=== PATIENT | female | born 1975 | race Caucasian/White ===

== ENCOUNTER 2021-06-29 23:20 | Observation (INO) | payer BC, SELFPAY ==
--- NOTE | 2021-06-29 23:18 | ECG_ITS ---
APPROVED REPORT Exam: Resting ECG HR:86 bpm ECG Measurements Heart Rate 86 AXES WI 132 P 43 QRSd 72 QRS 20 QT 356 T 45 QTc 426 Conclusion Normal sinus rhythm Normal ECG Electronically signed by : Dominic Langford, 07/02/2021 21:08:47
[2021-06-29 23:21] VITALS: BP 167/79; PULSE 88; RESP 17; TEMP 36.7; O2SAT 98; BMI 34.9
--- NOTE | 2021-06-29 23:23 | HMH.EDGENADL ---
ED Disposition Clinical Impression: Chest pain Qualifiers: Chest pain type: unspecified Qualified Code(s): R07.9 - Chest pain, unspecified Disposition: Admitted as Observation Condition on Discharge: Good - Critical Care Critical Care Time: No Attestation: On , the high probability of a clinically significant, sudden or life threatening deterioration of the following system(s) required my full and direct attention, intervention and personal management. The time I documented below is in addition to time spent performing reported procedures but includes the following listed in this critical care notation. Medical Decision Making - Medical Records Medical records reviewed: Yes: I reviewed the patient's medical records. MR Grubbs: Reviewed prior cardiac cath results from 2019. See below. - [place] Inquiry Pt receiving controlled substance: No Vital Signs: 06/29/21 23:21 Temperature 98.1 F Temperature Source Oral Pulse Rate [Right Brachial] 88 Respiratory Rate 17 Blood Pressure [Right Arm] 167/79 H Blood Pressure Mean [Right Arm] 108 Blood Pressure Source [Right Arm] Automatic Cuff Blood Pressure Position [Right Arm] Sitting 02 Sat by Pulse Oximetry 98 Oxygen Delivery Method Room Air - Lab Data Lab Results 06/29/21 23:30: WBC 9.4, RBC 4.94, Hgb 15.1, Hct 43.7, MCV 88.5, MCH 30.6, MCHC 34.6, RDW 13.3, Plt Count 360, MPV 7.3 L, Neut % (Auto) 50.1, Lymph % (Auto) 40.0, [place] % (Auto) 6.1, Eos % (Auto) 2.2, Baso % (Auto) 1.6, Neut # (Auto) 4.7, Lymph # (Auto) 3.8, [place] # (Auto) 0.6, Eos # (Auto) 0.2, Baso # (Auto) 0.2 06/29/21 23:30: Sodium 141, Potassium 4.1, Chloride 104, Carbon Dioxide 28, Anion Gap 13.1, BUN 12, Creatinine 0.70, Estimated Creat Clear 156, Estimated GFR 91, Est GFR ( Amer) 111, Glucose 110 H, Calcium 10.1, Total Bilirubin 0.2, AST 49 H, ALT 58, Alkaline Phosphatase 84, Troponin I < 0.01, NT-Pro-B Natriuret Pep 52.3, Total Protein 8.4 H, Albumin 4.4, Globulin 4.0 H, Albumin/Globulin Ratio 1.1, TSH 2.86, Thyroxine (T4) 15.1 H 06/30/21 00:23: SARS-CoV-2 (PCR) Not detected, Influenza A Untype (PCR) Not detected, Influenza Type B (PCR) Not detected Result diagrams: 06/29/21 23:30 06/29/21 23:30 Orders (Tests/Meds): ORDERS Category Date Time Status Drug Screen,Urine Stat Lab 06/29/21 23:29 Ordered Troponin I Q3H Lab 06/30/21 02:45 Ordered Troponin I Q3H Lab 06/30/21 05:45 Ordered Urinalysis and Microscopic Stat Lab 06/29/21 23:29 Ordered CARDIAC CATHETERIZATION DATE OF CATHETERIZATION:03/24/2019 12:41 PM PROCEDURES: 1. Left heart catheterization 2. Left ventriculogram 3. Selective coronary angiogram INDICATION FOR TEST: 1. Unstable angina 2. Strong family history of coronary artery disease 44-year-old patient with extensive tobacco history and a very strong family history of coronary artery disease who was seen in an outside hospital last week with chest pain. Patient subsequently ruled out for myocardial infarction. She was followed in cardiology clinic where she was hypertensive and describing anginal symptoms. Because of a normal EKG she was placed on antianginal medications and a stress test was scheduled. I was contacted last evening by her father who is also heart patient with a history of bypass surgery and young age we described her having worsening angina. Patient was brought in this morning for urgent evaluation. Patient was describing intermittent chest pain and pressure coming and going. She described it is a very uncomfortable pressure feeling radiating down both arms which was occurring at rest. Based on her associated risk factors and accelerated and unstable symptoms, it was felt she needed urgent cardiac catheterization and was taken directly to the Manager [facility] Informed consent was obtained prior to the procedure. COMPLICATIONS: None ESTIMATED BLOOD LOSS: Less than 10 ml. TECHNIQUE: One percent lidocaine used to anesthetize the r
--- NOTE | 2021-06-29 23:29 | XR_ITS ---
PROCEDURE INFORMATION: Exam: XR Chest Exam date and time: 06/29/2021 11:29 PM Age: 45 years old Clinical indication: Chest pressure; Patient HX: Chest pain; Additional info: Cp TECHNIQUE: Imaging protocol: XR of the chest. Views: 2 views. COMPARISON: No relevant prior studies available. FINDINGS: Lungs: Unremarkable. No consolidation. Pleural spaces: Unremarkable. No pleural effusion. No pneumothorax. Heart/Mediastinum: Unremarkable. No cardiomegaly. Bones/joints: Unremarkable. IMPRESSION: No acute findings.
[2021-06-29 23:43] LABS: Basophils # 0.2 K/mm3 (0-0.2); Basophils % 1.6 % (0.1-2.0); Eosinophils # 0.2 K/mm3 (0.0-0.4); Eosinophils % 2.2 % (0.1-12.0); Hematocrit 43.7 % (37.0-47.0); Hemoglobin 15.1 g/dL (12.2-16.2); Lymphocytes # 3.8 K/mm3 (0.7-4.5); Mean Corpuscular HGB Conc 34.6 g/dL (31.8-35.4); Mean Corpuscular Hemoglobin 30.6 pg (27.0-31.2); Mean Corpuscular Volume 88.5 fl (81-99); Mean Platelet Volume 7.3 fl (7.4-10.4); Monocytes # 0.6 K/mm3 (0.1-1.0); Monocytes % 6.1 % (1.7-9.3); Neutrophils # 4.7 K/mm3 (1.8-7.8); Neutrophils % 50.1 % (37.0-80.0); Platelet Count 360 K/mm3 (142-424); Red Blood Count 4.94 M/mm3 (4.20-5.40); Red Cell Distribution Width 13.3 % (11.5-17.5); White Blood Count 9.4 K/mm3 (4.8-10.8)
[2021-06-29 23:46] LABS: Chloride 104 mmol/L (98-107); Potassium 4.1 mmoL/L (3.5-5.1); Sodium 141 mmol/L (136-145)
[2021-06-29 23:49] LABS: Alanine Aminotransferase 58 U/L (12-78); Albumin Level 4.4 g/dl (3.5-5.0); Alkaline Phosphatase 84 U/L (38-126); Anion Gap 13.1 mEq/L (5-15); Aspartate Amino Transferase 49 U/L (14-36); Bilirubin,Total 0.2 mg/dl (0.2-1.3); Blood Urea Nitrogen 12 mg/dl (7-17); Calcium 10.1 mg/dl (8.4-10.2); Carbon Dioxide 28 mmol/L (22.0-30.0); Creatinine Clearance Estimated 156 mL/min (50-200); Estimated Glomerular Filt Rate 91 ml/min (>60); GFR (African American) 111 ML/MIN (>60); Glucose 110 mg/dl (74-100); Total Protein,Serum 8.4 g/dl (6.3-8.2)
[2021-06-29 23:50] LABS: Albumin/Globulin Ratio 1.1 (1.1-1.8)
[2021-06-29 23:59] LABS: NT Pro Brain Natriuretic Pep. 52.3 pg/mL (0-125)
[2021-06-30] VITALS (21 sets, daily range): BP systolic 91–168; BP diastolic 58–93; PULSE 66–88; RESP 14–18; TEMP 36.3–37.1; O2SAT 95–100; BMI 34.9
--- NOTE | 2021-06-30 | IR_ITS ---
APPROVED REPORT Patient Location: Inpatient Sock Knitter: ALY Hall RT (R) PROCEDURES Left heart catheterization Left ventriculogram Selective coronary angiogram Bilateral selective renal angiography INDICATION Unstable angina, Strong family history of coronary disease, Suspected renovascular hypertension given severe diastolic dysfunction and severely elevated LVEDP Informed consent was obtained prior to the procedure. COMPLICATIONS NONE Estimated Blood Loss: LESS THAN 10 ML TECHNIQUE One percent lidocaine used to anesthetize the right anterior aspect of the wrist. The right radial artery was accessed via the Seldinger technique. A 6 Hebrew sheath was placed in the right radial artery. 2.5 mg of verapamil, 800 mcg of nitroglycerin, 1mg Lidocaine and 5000 U Heparin were given through the arterial sheath. The trap catheter was also used to perform left heart catheterization, left ventriculogram and selective coronary angiogram. At the end of the procedure the sheath was removed good hemostasis was achieved using Traclet band, patient was transferred to the postop holding area in stable condition. ANGIOGRAPHIC RESULTS The left main artery Normal The left anterior descending artery Has proximal 10% stenosis with a mid vessel 10 to 20% stenosis The circumflex artery Nondominant with mild mid vessel 30% stenosis The right coronary artery Large dominant with SHARON II flow throughout accompanied by diffuse 20% stenosis The MORALES ventriculogram reveals Normal 65% The left ventricular end-diastolic pressure Severely elevated at 35 mmHg Right renal artery singular normal Left renal artery singular normal IMPRESSION Mild nonflow limiting coronary disease Endothelial dysfunction as evidenced by slow flow down the dominant right coronary Normal ejection fraction Severe diastolic dysfunction likely secondary to hypertensive heart disease PLAN 1. LDL less than 55 to be achieved with high intensity statin 2. Immediate tobacco cessation 3. Patient would benefit from diuretics and better control of hypertension 4. Low-dose beta-blockers 5. Rest of risk factor modification Electronically signed by : Ervin King, 06/30/2021 15:47:30
[2021-06-30 00:06] LABS: Troponin I < 0.01 ng/ml (0.00-0.034)
[2021-06-30 00:07] LABS: T4 (Thyroxine) 15.1 ug/dl (5.53-11.0)
[2021-06-30 00:21] LABS: Thyroid Stimulating Hormone 2.86 uIU/mL (0.465-4.68)
[2021-06-30 00:39] LABS: Coronavirus 19, PCR Not Detected (NotDetected); Influenza A, PCR Not Detected (NotDetected); Influenza B, PCR Not Detected (NotDetected)
--- NOTE | 2021-06-30 01:53 | PC.NURSE ---
pt arrived to floor via wheelchair from ED
[2021-06-30 02:50] LABS: Troponin I < 0.01 ng/ml (0.00-0.034)
[2021-06-30 06:44] LABS: Troponin I < 0.01 ng/ml (0.00-0.034)
--- NOTE | 2021-06-30 07:18 | HMH.HP ---
*Admission Date: 06/30/21 *Chief complaint: chest pain *History of present illness: 45-year-old female with history of chest pain, significant family history of cardiovascular disease. She reportedly has been having episodes of chest pain off and on for the past 5 days getting 6-7 episodes a day that last up to an hour. Has previously seen cardiology (Dr. King). She contacted him due to this persistent pain and he recommended she come to the ER for assessment and admission. Of note she was recently seen at [facility] for chest pain and discharged because of negative troponins. Associated symptoms with her chest pain episodes include shortness of breath, nausea, diaphoresis, referred pain to her arm. On initial eval in our ER, troponin negative. Patient admitted for serial cardiac enzyme monitoring, cardiology consult in the morning, and anticipated left heart cath. Of note, she is a smoker, significant family history of heart disease, has hypertension and hyperlipidemia. This morning she she denies significant pain, symptoms more or less resolved. Questions answered on morning rounds [facility] History I have reviewed the patient's past medical history: Yes Medical History: Reports:: Gastroesophageal Reflux Disease(GERD), Heart Murmur, Hypertension Denies:: Cancer, Diabetes Mellitus Type 1, Diabetes Mellitus Type 2, Internal Pacemaker, MRSA, Seizures *Have you ever received a pneumonia vaccine?: No *Have you received a flu vaccine this season?: No Other Surgeries: Yes: Appendectomy, Cardiac Catheterization (not stenting), Cholecystectomy, Other. No: Pacemaker Amputation: No Fractures: No - *Social History Last grade of school completed: Advanced degree Smoking Status: Current every day smoker Tobacco Type: cigarettes # Packs/Day (cigarettes): 1 Alcohol Intake: current Alcohol Intake Frequency:: holidays/special occasions only Substance Use Type: former substance user *Occupational Status:: employed Housing: house Household Members: spouse, children *Travel in the last 8 weeks: None Family Hx:: Unable to obtain Review of Systems - Review of Systems Review of systems:: pertinent systems reviewed and negative unless documented below (14 point review of systems performed, pertinent positives and negatives as per HPI) Meds Home Medications Medication Instructions Recorded Confirmed Type omeprazole 20 mg capsule,delayed 20 mg PO DAILY 03/17/19 06/30/21 History release aspirin 81 mg tablet,delayed 81 mg PO DAILY 03/31/19 06/30/21 History release atorvastatin 40 mg tablet 40 mg PO QHS 03/31/19 06/30/21 History bisoproloL fumarate [Bisoprolol 10 mg PO DAILY 06/30/21 06/30/21 History 10mg Tablet] Allergies Allergy/AdvReac Type Severity Reaction Status Date / Time Penicillins Allergy Mild Verified 03/31/19 11:05 Exam Vital signs and Labs for Last 24 Hours: Temp Pulse Resp BP Pulse Ox 98 F 70 18 136/74 96 06/30/21 03:50 06/30/21 04:00 06/30/21 03:50 06/30/21 03:50 06/30/21 03:50 Laboratory Results - last 24 hr 06/29/21 23:30: WBC 9.4, RBC 4.94, Hgb 15.1, Hct 43.7, MCV 88.5, MCH 30.6, MCHC 34.6, RDW 13.3, Plt Count 360, MPV 7.3 L, Neut % (Auto) 50.1, Lymph % (Auto) 40.0, [place] % (Auto) 6.1, Eos % (Auto) 2.2, Baso % (Auto) 1.6, Neut # (Auto) 4.7, Lymph # (Auto) 3.8, [place] # (Auto) 0.6, Eos # (Auto) 0.2, Baso # (Auto) 0.2 06/29/21 23:30: Sodium 141, Potassium 4.1, Chloride 104, Carbon Dioxide 28, Anion Gap 13.1, BUN 12, Creatinine 0.70, Estimated Creat Clear 156, Estimated GFR 91, Est GFR ( Amer) 111, Glucose 110 H, Calcium 10.1, Total Bilirubin 0.2, AST 49 H, ALT 58, Alkaline Phosphatase 84, Troponin I < 0.01, NT-Pro-B Natriuret Pep 52.3, Total Protein 8.4 H, Albumin 4.4, Globulin 4.0 H, Albumin/Globulin Ratio 1.1, TSH 2.86, Thyroxine (T4) 15.1 H 06/30/21 00:23: SARS-CoV-2 (PCR) Not detected, Influenza A Untype (PCR) Not detected, Influenza Type B (PCR) Not detected 06/30/21 0
--- NOTE | 2021-06-30 07:41 | HMH.CNCARD ---
History of Present Illness Consult date: 06/30/21 Requesting physician: Mauro Baker Consult reason: chest pain Chief complaint: Chest pain and Hypertension History of present illness: 45-year-old female presented to [facility] with atypical chest pain. Patient states her chest pain started over the weekend, in which she felt episodes of heaviness on her chest. Patient states these episodes would come and go only lasting for a few seconds. Patient states she would take her blood pressure and noticed that it was very high. Patient states she had stopped taking her antihypertensive medication over a year ago. Patient states on [facility]. Patient states all her lab work was fine and sent her home. She states she followed up with PCP the next day, and was prescribed lisinopril due to her elevated blood pressure. Patient states she came in the ED last evening, with the heaviness on her chest. Patient states she did become short of breath with this episode. Patient denied nausea or vomiting. Patient denies fevers. Patient denies chest pain, tightness or pressure at this time. Denies shortness of breath. Denies palpitations or dizziness. Patient states she did speak with Dr. King prior to coming to the emergency room. Dr. King recommended patient to be evaluated in the ED with possible admission with possible catheterization this a.m. Patient has history of coronary artery disease. Last heart catheterization was in 2019 which revealed mild nonflow limiting CAD, hyperdynamic ventricle consistent with hypertensive heart disease and diastolic dysfunction. Elevated LVEDP consistent with diastolic dysfunction and hypertensive heart disease. Patient does have significant family history of coronary artery disease. Father is known to have NE requiring CABG. Mother has history of CAD. Patient has history of hypertension, in which she is noncompliant with her medications. History of hyperlipidemia, patient is noncompliant with her medication. Initial work-up was performed in the ED. Labs are unremarkable. Serial troponins are negative. Initial EKG revealed sinus rhythm with a heart rate of 76 bpm. [facility] ANGIOGRAPHIC RESULTS:(2019) 1. The left main artery normal 2. The left anterior descending artery is proximally normal and has mild mid vessel 10-20% stenoses. 3. The circumflex artery is a nondominant vessel and has a proximal 10-20 and a mid vessel concentric 30% stenosis 4. The right coronary artery is a large dominant vessel which has proximal and mid vessel 10-20% stenoses and distal tendon 20% atheromatous plaque. The posterior descending artery has 20 and 30% mid vessel stenoses 5. The MORALES ventriculogram reveals slightly hyperdynamic at 75% 6. The left ventricular end-diastolic pressure 20 mmHg IMPRESSION: 1. Mild nonflow limiting coronary artery disease 2. Hyperdynamic ventricle consistent with hypertensive heart disease and diastolic dysfunction 3. Elevated LVEDP consistent with diastolic dysfunction and hypertensive heart disease PLAN: 1. Absolute tobacco avoidance 2. Daily aspirin 81 mg 3. LDL less than 55 4. Increased beta blockers and antianginal medications with better control of hypertension 5. Aggressive risk factor modification 6. Stress relief Discussed plan of care with Dr. King. Patient will be scheduled for a left heart catheterization this a.m., due to atypical chest pain and uncontrolled hypertension. Discussed risk and benefits of left heart catheterization with right radial access with patient. Patient verbalized understanding and is agreeable to procedure. Obtain echocardiogram to assess LV function and valve status. Patient was started on bisoprolol 10 mg daily for hypertension. Will start atorvastatin 40 mg at bedtime for hyperlipidemia. Will obtain lipid and liver panel. Pending on the results of the
--- NOTE | 2021-06-30 07:45 | CA_ITS ---
APPROVED REPORT EXAM: Comprehensive 2D, Doppler, and color-flow Echocardiogram Teacher Advisor: Sharon Roach RDCS Ht: 5 ft 4 in Wt: 210lbs BSA: 2.00 BP: 142/85 mmHg Indications: CP,CAD,SMOKER,HTN 2D Dimensions LVDd 1.93 cm F: 3.9 - 5.3 M-Mode Dimensions RVDd 2.29 cm (0.9-2.6) LA Diam 3.30 cm (1.9-4.0) LVDd 5.04 cm (3.5-5.7) Ao Diam 3.05 cm (2.0-3.7) LVDs 3.58 cm (3.5-5.7) IVSd 0.93 cm (0.6-1.1) PWd 0.79 cm (0.6-1.1) EF (Teich) 55.40% FS 29.00% EDV (Teich) 120.50 mL ESV (Teich) 53.70 mL LV Diastology E Decel Time 197.00 (160-240 msec) E/A Ratio 1.1 MED E' 7.60 (< 7 cm/sec) E'/MED E' Ratio 10.79 (>14) LAT E' 9.40 (<10 cm/sec) E/LAT E' Ratio 8.72 (>14) Mitral Valve MV E Max Naldo. 82.00 (40-130 cm/s) MV A Velocity 78.00 (40-130 cm/s) E/A Ratio 1.06 MV Decel. Time 197.00 (160-240 ms) MV PHT 58.00 ms Left Ventricle Left atrium is normal size, left ventricle is normal size, there is no concentric left ventricular hypertrophy, visually estimated ejection fraction 55% with no regional wall motion abnormality, diastolic parameters are within normal range. Right Ventricle Right atrium and right ventricle are normal size and contractility. Aortic Valve Aortic valve is grossly normal, there is no aortic stenosis or aortic insufficiency. Mitral Valve Mitral valve grossly normal, there is trace mitral regurgitation. Tricuspid Valve Tricuspid valve grossly normal, there is trace tricuspid regurgitation, tricuspid regurgitation jet velocity is inadequate for calculation of the right ventricular systolic pressure. Pulmonic Valve Pulmonic valve is poorly visualized. Great Vessels Aortic root is normal size. Pericardium No significant pericardial effusion noted. Conclusion 1. Normal left ventricular size, preserved left ventricular systolic function visually estimated ejection fraction 55% with no regional wall motion abnormalities diastolic parameters are within normal range. 2. Trace mitral and tricuspid regurgitation. 3. No significant pericardial effusion noted. Electronically signed by : Lucien Stoll, 06/30/2021 11:42:13
[2021-06-30 08:10] LABS: Chol/HDL Ratio 5.3 (1-3.5); Cholesterol 240 mg/dl (140-200); HDL Cholesterol 45 mg/dl (40-60); Triglycerides 100 mg/dl (30-150); VLDL Cholesterol 20 mg/dL (0-40)
[2021-06-30 08:21] LABS: Direct LDL Cholesterol 181.87 mg/dL (100-129)
--- NOTE | 2021-06-30 18:10 | P.CONPHA_ITS ---
[facility] Pharmacy VTE Monitoring - Patient Demographics Admission date: 06/30/21 Report Date: 06/30/21 Time: 18:10 Allergies/Adverse Reactions: Patient Allergies Penicillins Allergy (Mild, Verified 03/31/19 11:05) Height: 1.65 m Weight: 95.254 kg Patient Problems: Current Active Problems Atypical chest pain (Acute) HLD (hyperlipidemia) (Chronic) Class 1 obesity (Chronic) Family history of coronary artery disease (Chronic) Smoker (Chronic) SOB (shortness of breath) (Acute) Chest pain (Acute) HTN (hypertension) (Chronic) - VTE Risk Labs: VTE Related Lab Results Hgb 15.1 g/dL (12.2-16.2) 06/29/21 23:30 Hct 43.7 % (37.0-47.0) 06/29/21 23:30 Plt Count 360 K/mm3 (142-424) 06/29/21 23:30 BUN 12 mg/dl (7-17) 06/29/21 23:30 Creatinine 0.70 mg/dl (0.52-1.04) 06/29/21 23:30 Estimated Creat Clear 156 mL/min (50-200) 06/29/21 23:30 VTE Risk Level: Low Risk - Prophylaxis Types of VTE Prophylaxis: TEDS Knee High
--- NOTE | 2021-06-30 19:38 | PC.NURSE ---
aox4, cath site to r groin c/d/i, no bleeding or hematoma noted. vss.
[2021-07-01] VITALS: BP 120/78; PULSE 69; PULSE 72; RESP 18; TEMP 36.4; O2SAT 95
[2021-07-01 00:07] LABS: Microscopic, Urine URINE MICROSCOPIC (MICROSCOPIC)
[2021-07-01 00:13] LABS: Appearance,Urine CLEAR (Clear); Bilirubin,Urine Negative (Negative); Blood, Urine TRACE-L (Negative); Color,Urine YELLOW (Yellow); Glucose,Urine (UA) Negative (Negative); Ketones,Urine Negative (Negative); Leukocyte Esterase,Urine TRACE (Negative); Nitrate,Urine Negative (Negative); Protein,Urine Negative (Negative); Specific Gravity, Urine 1.025 (1.005-1.030); Urobilinogen,Urine 0.2 EU/dl (0.2)
[2021-07-01 00:22] LABS: Amorphous Sediment,Urine Trace /lpf
[2021-07-01 00:23] LABS: Amphetamine/Metha Screen,Urine Negative ng/ml (<1000); Barbiturates Screen,Urine Negative ng/ml (<200)
[2021-07-01 00:24] LABS: Benzodiazepines Screen,Urine Positive ng/ml (<200)
[2021-07-01 00:25] LABS: Cannabinoid Screen,Urine Negative ng/ml (<50); Cocaine Screen,Urine Negative ng/ml (<300)
[2021-07-01 00:26] LABS: Methadone Screen,Urine Negative ng/ml (<300)
[2021-07-01 00:27] LABS: Opiate Screen,Urine Negative ng/ml (<300); Phencyclidine Screen,Urine Negative ng/ml (<25)
[2021-07-01 03:39] VITALS: BP 97/61; PULSE 71; RESP 18; TEMP 36.6; O2SAT 95
[2021-07-01 04:00] VITALS: PULSE 71
[2021-07-01 05:04] VITALS: BMI 35.3
[2021-07-01 06:02] LABS: Basophils # 0.1 K/mm3 (0-0.2); Eosinophils # 0.1 K/mm3 (0.0-0.4); Eosinophils % 1.4 % (0.1-12.0); Hematocrit 37.5 % (37.0-47.0); Hemoglobin 13.1 g/dL (12.2-16.2); Lymphocytes # 2.5 K/mm3 (0.7-4.5); Lymphocytes % 30.3 % (10-50); Mean Corpuscular HGB Conc 34.9 g/dL (31.8-35.4); Mean Corpuscular Hemoglobin 31.2 pg (27.0-31.2); Mean Corpuscular Volume 89.4 fl (81-99); Mean Platelet Volume 7.4 fl (7.4-10.4); Monocytes # 0.5 K/mm3 (0.1-1.0); Monocytes % 5.5 % (1.7-9.3); Neutrophils % 61.7 % (37.0-80.0); Platelet Count 298 K/mm3 (142-424); Red Cell Distribution Width 13.5 % (11.5-17.5); White Blood Count 8.2 K/mm3 (4.8-10.8)
[2021-07-01 06:23] LABS: Anion Gap 9.3 mEq/L (5-15); Blood Urea Nitrogen 15 mg/dl (7-17); Carbon Dioxide 28 mmol/L (22.0-30.0); Chloride 102 mmol/L (98-107); Creatinine Clearance Estimated 138 mL/min (50-200); Estimated Glomerular Filt Rate 78 ml/min (>60); GFR (African American) 95 ML/MIN (>60); Glucose 96 mg/dl (74-100); Potassium 4.3 mmoL/L (3.5-5.1); Sodium 135 mmol/L (136-145)
[2021-07-01 06:35] LABS: Calcium 8.6 mg/dl (8.4-10.2)
[2021-07-01 08:00] VITALS: BP 111/67; PULSE 78; RESP 18; TEMP 36.9; O2SAT 97
--- NOTE | 2021-07-01 08:10 | HMH.DCSUM ---
General - General Admission date:: 06/30/21 Discharge date: 07/01/21 HPI HPI: 45-year-old female with history of chest pain, significant family history of cardiovascular disease. She reportedly has been having episodes of chest pain off and on for the past 5 days getting 6-7 episodes a day that last up to an hour. Has previously seen cardiology (Dr. King). She contacted him due to this persistent pain and he recommended she come to the ER for assessment and admission. Of note she was recently seen at [facility] for chest pain and discharged because of negative troponins. Associated symptoms with her chest pain episodes include shortness of breath, nausea, diaphoresis, referred pain to her arm. On initial eval in our ER, troponin negative. Patient admitted for serial cardiac enzyme monitoring, cardiology consult in the morning, and anticipated left heart cath. Of note, she is a smoker, significant family history of heart disease, has hypertension and hyperlipidemia. This morning she she denies significant pain, symptoms more or less resolved. Questions answered on morning rounds Hospital Course Hospital Course: Patient was admitted, sent to cardiac cath suite for left heart cath, results as noted below: ANGIOGRAPHIC RESULTS The left main artery Normal The left anterior descending artery Has proximal 10% stenosis with a mid vessel 10 to 20% stenosis The circumflex artery Nondominant with mild mid vessel 30% stenosis The right coronary artery Large dominant with SHARON II flow throughout accompanied by diffuse 20% stenosis The MORALES ventriculogram reveals Normal 65% The left ventricular end-diastolic pressure Severely elevated at 35 mmHg Right renal artery singular normal Left renal artery singular normal IMPRESSION Mild nonflow limiting coronary disease Endothelial dysfunction as evidenced by slow flow down the dominant right coronary Normal ejection fraction Severe diastolic dysfunction likely secondary to hypertensive heart disease PLAN 1. LDL less than 55 to be achieved with high intensity statin 2. Immediate tobacco cessation 3. Patient would benefit from diuretics and better control of hypertension 4. Low-dose beta-blockers 5. Rest of risk factor modification Patient was monitored overnight, did well, blood pressure remained below previous admission levels, this morning is 111/80 after she has been awakened. She has no chest pain. Plan will be to discharge home on low-dose beta-trini, high intensity statin, aspirin and diuretic. She will be followed up by her normal provider, nurse practitioner Ms. Javier in [place] on Saturday-already has an appointment. And with cardiology here at [facility]. Discussed smoking cessation for quite a lengthy amount of time this morning. Objective Vital signs: Temp Pulse Resp BP Pulse Ox 97.9 F 71 18 97/61 L 95 07/01/21 03:39 07/01/21 04:00 07/01/21 03:39 07/01/21 03:39 07/01/21 03:39 no acute distress - *Routine HEENT Exam Head: Present: normocephalic Eye: Present: EOMI, PERRL ENT: Present: mucous membranes moist - *Routine Neck Exam Present: supple - *Routine Respiratory Exam Present: CTA bilaterally - *Routine Cardiovascular Exam Present: RRR - *Routine Abdominal Exam Present: soft, normoactive bowel sounds. Absent: tenderness - *Routine Extremities Exam Absent: cyanosis, clubbing, edema - *Routine Skin Exam Present: warm. Absent: rash - Detailed Eye Exam Eyelids: Bilateral normal inspection Results Labs on day of discharge: Labs from last 24 hours 07/01/21 07/01/21 07/01/21 05:20 05:20 00:00 WBC 8.2 RBC 4.20 Hgb 13.1 Hct 37.5 MCV 89.4 MCH 31.2 MCHC 34.9 RDW 13.5 Plt Count 298 MPV 7.4 Neut % (Auto) 61.7 Lymph % (Auto) 30.3 [place] % (Auto) 5.5 Eos % (Auto) 1.4 Baso % (Auto) 1.0 Neut # (Auto) 5.0 Lymph #
--- NOTE | 2021-07-01 10:35 | PC.NURSE ---
PT STATED THAT SHE WANTED TO TAKE HER MORNING MEDICATIONS AT HOME
== END 2021-07-01 09:55 | disposition home or self-care (01) ==
LOC: ER 06-30 00:19 → 2ND 06-30 01:58
PROVIDERS: Internal Medicine; Urology; Admitting Provider Internal Medicine Adolescent Medicine; Emergency Provider Emergency Medicine; PCP Nurse Practitioner Family; Visit Provider Internal Medicine Adolescent Medicine
DX: I25.110 Atherosclerotic heart disease of native coronary artery with unstable angina pectoris (principal); Z82.49 Family history of ischemic heart disease and other diseases of the circulatory system; F17.210 Nicotine dependence, cigarettes, uncomplicated; Z20.822 Contact with and (suspected) exposure to COVID-19; I15.0 Renovascular hypertension; R06.9 Unspecified abnormalities of breathing; I11.9 Hypertensive heart disease without heart failure
CPT/HCPCS: 36252; 36415; 71046; 80048; 80053; 80061; 80305; 81001; 83880; 84436; 84443; 84484; 85025; 87086; 87088; 87186; 93005; 93306; 93458; 99152; 99284; C1725; C1769; G0378; J1644; Q9967; U0003

== ENCOUNTER → 2023-09-03 14:37 | Outpatient (CLI) | payer BC, SELFPAY ==
[2023-09-03 15:51] LABS: Basophils # 0.1 K/mm3 (0-0.2); Basophils % 1.2 % (0.1-2.0); Eosinophils # 0.1 K/mm3 (0.0-0.4); Eosinophils % 1.6 % (0.1-12.0); Hemoglobin 14.5 g/dL (12.2-16.2); Lymphocytes # 2.9 K/mm3 (0.7-4.5); Lymphocytes % 36.6 % (10-50); Mean Corpuscular HGB Conc 32.2 g/dL (31.8-35.4); Mean Corpuscular Hemoglobin 29.1 pg (27.0-31.2); Mean Corpuscular Volume 90.2 fl (81-99); Mean Platelet Volume 7.8 fl (7.4-10.4); Monocytes # 0.4 K/mm3 (0.1-1.0); Monocytes % 4.9 % (1.7-9.3); Neutrophils # 4.4 K/mm3 (1.8-7.8); Neutrophils % 55.6 % (37.0-80.0); Platelet Count 336 K/mm3 (142-424); Red Blood Count 4.99 M/mm3 (4.20-5.40); Red Cell Distribution Width 13.3 % (11.5-17.5); White Blood Count 7.8 K/mm3 (4.8-10.8)
[2023-09-03 15:59] LABS: Hemoglobin A1C 5.8 % (4.0-6.0)
[2023-09-03 16:24] LABS: Alanine Aminotransferase 62 U/L (12-78); Albumin Level 4.1 g/dl (3.5-5.0); Alkaline Phosphatase 91 U/L (38-126); Anion Gap 14.4 mEq/L (5-15); Aspartate Amino Transferase 60 U/L (14-36); Bilirubin,Direct 0.2 mg/dl (0.0-0.4); Bilirubin,Indirect 0.2 mg/dL (0.0-0.9); Bilirubin,Total 0.4 mg/dl (0.2-1.3); Bilirubin,Unconjugated 0.2 mg/dL (0.0-1.1); Blood Urea Nitrogen 13 mg/dl (7-17); Calcium 9.2 mg/dl (8.4-10.2); Carbon Dioxide 26 mmol/L (22.0-30.0); Chloride 104 mmol/L (98-107); Chol/HDL Ratio 5.8 (1-3.5); Cholesterol 232 mg/dl (140-200); Estimated Glomerular Filt Rate 77 ml/min (>60); GFR (African American) 93 ML/MIN (>60); Glucose 91 mg/dl (74-100); HDL Cholesterol 40 mg/dl (40-60); Magnesium 1.9 mg/dl (1.6-2.3); Potassium 4.4 mmoL/L (3.5-5.1); Sodium 140 mmol/L (136-145); Total Protein,Serum 7.4 g/dl (6.3-8.2); Triglycerides 173 mg/dl (30-150); VLDL Cholesterol 35 mg/dL (0-40)
[2023-09-03 16:36] LABS: Direct LDL Cholesterol 152.17 mg/dL (100-129)
[2023-09-03 16:41] LABS: Free T4 (Free Thyroxine) 1.26 ng/dl (0.78-2.19)
[2023-09-03 16:55] LABS: Thyroid Stimulating Hormone 2.71 uIU/mL (0.465-4.68)
== END ==
PROVIDERS: PCP Nurse Practitioner Family; Visit Provider Physician Assistant
DX: E78.5 Hyperlipidemia, unspecified (principal); R06.02 Shortness of breath; F17.200 Nicotine dependence, unspecified, uncomplicated; I11.9 Hypertensive heart disease without heart failure
CPT/HCPCS: 36415; 80048; 80061; 80076; 83036; 83735; 84439; 84443; 85025

== ENCOUNTER → 2023-11-29 08:56 | Outpatient (CLI) | payer BC, SELFPAY ==
[2023-11-29 09:24] LABS: Basophils # 0.1 K/mm3 (0-0.2); Basophils % 1.1 % (0.1-2.0); Eosinophils # 0.2 K/mm3 (0.0-0.4); Eosinophils % 2.4 % (0.1-12.0); Hematocrit 38.1 % (37.0-47.0); Hemoglobin 13.2 g/dL (12.2-16.2); Lymphocytes # 2.3 K/mm3 (0.7-4.5); Lymphocytes % 36.8 % (10-50); Mean Corpuscular HGB Conc 34.6 g/dL (31.8-35.4); Mean Corpuscular Hemoglobin 30.6 pg (27.0-31.2); Mean Corpuscular Volume 88.6 fl (81-99); Mean Platelet Volume 7.2 fl (7.4-10.4); Monocytes # 0.4 K/mm3 (0.1-1.0); Monocytes % 6.5 % (1.7-9.3); Neutrophils # 3.4 K/mm3 (1.8-7.8); Neutrophils % 53.2 % (37.0-80.0); Platelet Count 333 K/mm3 (142-424); Red Cell Distribution Width 13.7 % (11.5-17.5); White Blood Count 6.3 K/mm3 (4.8-10.8)
[2023-11-29 09:48] LABS: Chloride 105 mmol/L (98-107); Potassium 4.4 mmoL/L (3.5-5.1); Sodium 139 mmol/L (136-145)
[2023-11-29 09:50] LABS: Alanine Aminotransferase 60 U/L (12-78); Aspartate Amino Transferase 48 U/L (14-36); Bilirubin,Unconjugated 0.3 mg/dL (0.0-1.1); Blood Urea Nitrogen 15 mg/dl (7-17); Estimated Glomerular Filt Rate 77 ml/min (>60); GFR (African American) 93 ML/MIN (>60)
[2023-11-29 09:51] LABS: Albumin Level 3.7 g/dl (3.5-5.0); Alkaline Phosphatase 89 U/L (38-126); Anion Gap 10.4 mEq/L (5-15); Bilirubin,Direct 0.2 mg/dl (0.0-0.4); Bilirubin,Indirect 0.3 mg/dL (0.0-0.9); Bilirubin,Total 0.5 mg/dl (0.2-1.3); Carbon Dioxide 28 mmol/L (22.0-30.0); Chol/HDL Ratio 4.1 (1-3.5); Cholesterol 186 mg/dl (140-200); Glucose 117 mg/dl (74-100); HDL Cholesterol 45 mg/dl (40-60); Total Protein,Serum 6.6 g/dl (6.3-8.2); Triglycerides 81 mg/dl (30-150); VLDL Cholesterol 16 mg/dL (0-40)
[2023-11-29 10:02] LABS: Direct LDL Cholesterol 119.36 mg/dL (100-129)
[2023-11-29 10:11] LABS: Free T4 (Free Thyroxine) 1.16 ng/dl (0.78-2.19)
[2023-11-29 10:25] LABS: Thyroid Stimulating Hormone 1.94 uIU/mL (0.465-4.68)
== END ==
LOC: LAB 08:57
PROVIDERS: PCP Nurse Practitioner Family; Visit Provider Physician Assistant
DX: R06.00 Dyspnea, unspecified (principal); I11.9 Hypertensive heart disease without heart failure; E78.5 Hyperlipidemia, unspecified; I63.9 Cerebral infarction, unspecified; E11.9 Type 2 diabetes mellitus without complications; F17.200 Nicotine dependence, unspecified, uncomplicated
CPT/HCPCS: 36415; 80048; 80061; 80076; 84439; 84443; 85025

== ENCOUNTER 2024-08-11 14:51 | Outpatient (CLI) | payer BC, SELFPAY ==
--- NOTE | 2024-08-11 14:54 | XR_ITS ---
FINAL REPORT CLINICAL HISTORY: orthopnea, htn, chest pain previous smoker COMPARISON: None FINDINGS: Two views of the chest were obtained. The heart size and pulmonary vascularity are within normal limits. The mediastinum is normal. No acute pulmonary abnormality is identified. There is no pneumothorax. The bony thorax is intact. IMPRESSION: No active cardiopulmonary disease. Reviewed, Interpreted and Dictated by Milind Wick III, MD Transcribed by Kaye Parham Authenticated and [facility]
[2024-08-11 15:27] LABS: Basophils # 0.1 K/mm3 (0-0.2); Basophils % 2.2 % (0.1-2.0); Eosinophils # 0.1 K/mm3 (0.0-0.4); Eosinophils % 1.6 % (0.1-12.0); Hematocrit 38.6 % (37.0-47.0); Hemoglobin 12.6 g/dL (12.2-16.2); Lymphocytes # 2.4 K/mm3 (0.7-4.5); Lymphocytes % 41.9 % (10-50); Mean Corpuscular HGB Conc 32.7 g/dL (31.8-35.4); Mean Corpuscular Hemoglobin 29.7 pg (27.0-31.2); Mean Corpuscular Volume 90.8 fl (81-99); Mean Platelet Volume 7.5 fl (7.4-10.4); Monocytes # 0.4 K/mm3 (0.1-1.0); Monocytes % 6.7 % (1.7-9.3); Neutrophils # 2.7 K/mm3 (1.8-7.8); Neutrophils % 47.7 % (37.0-80.0); Platelet Count 324 K/mm3 (142-424); Red Blood Count 4.25 M/mm3 (4.20-5.40); White Blood Count 5.7 K/mm3 (4.8-10.8)
[2024-08-11 16:19] LABS: Anion Gap 7.9 mEq/L (5-15); Blood Urea Nitrogen 12 mg/dl (7-17); Calcium 9.1 mg/dl (8.4-10.2); Carbon Dioxide 29 mmol/L (22.0-30.0); Chloride 105 mmol/L (98-107); Estimated Glomerular Filt Rate 77 ml/min (>60); GFR (African American) 93 ML/MIN (>60); Glucose 103 mg/dl (74-100); Potassium 4.9 mmoL/L (3.5-5.1); Sodium 137 mmol/L (136-145)
[2024-08-11 16:29] LABS: NT Pro Brain Natriuretic Pep. 144 pg/mL (0-125)
[2024-08-11 18:13] LABS: Hemoglobin A1C 6.1 % (4.0-6.0)
== END 2024-08-11 23:59 | disposition home or self-care (01) ==
LOC: LAB 14:52
PROVIDERS: PCP Nurse Practitioner Family; Visit Provider Physician Assistant
DX: R06.02 Shortness of breath (principal); I10 Essential (primary) hypertension; R07.9 Chest pain, unspecified; R06.01 Orthopnea
CPT/HCPCS: 36415; 71046; 80048; 83036; 83880; 84443; 85025

== ENCOUNTER 2025-01-14 09:59 | Outpatient (CLI) | payer BC, SELFPAY ==
--- NOTE | 2025-01-14 10:05 | CA_ITS ---
APPROVED REPORT EXAM: Comprehensive 2D, Doppler, and color-flow Echocardiogram Six Sigma Project Manager: Deana Arango RT(R) Ht: 5 ft 0 in Wt: 225lbs BSA: 1.96 BP: 138/92 mmHg Indications: CP, HTN, hyperlipidemia, SOB, ex smoker, fatigue. 2D Dimensions LVEF (Block's) 62.40 % F: 54 - 74 LV Volume 82.70 mL F: 46 - 106 LV Volume Index 42.2 mL/m2 F: 29 - 61 LA Volume 25.40 mL LA Volume Index 12.96 mL/m2 (M/F) 16-34 EF AP4 64.00 % EF AP2 60.6 % EF BP 62.4 % GL Strain -18.8 % M-Mode Dimensions RVDd 2.21 cm (0.9-2.6) LA Diam 3.67 cm (1.9-4.0) LVDd 4.42 cm (3.5-5.7) LVDs 3.30 cm (3.5-5.7) IVSd 0.60 cm (0.6-1.1) PWd 0.64 cm (0.6-1.1) EF (Teich) 50.20% FS 25.30% EDV (Teich) 88.60 mL ESV (Teich) 44.10 mL LV Diastology E Decel Time 183 (160-240 msec) E/A Ratio 1.0 Mitral Valve MV E Max Naldo. 88.0 (40-130 cm/s) MV A Velocity 90.0 (40-130 cm/s) E/A Ratio 0.98 MV PHT 54.0 ms Left Ventricle The left ventricle is normal size. The left ventricular systolic function is normal. The left ventricular ejection fraction is within the normal range. There is normal left ventricular wall thickness. There is normal LV segmental wall motion. The left ventricular diastolic function is normal. LVEF is 55%. Right Ventricle The right ventricle is normal size. The right ventricular systolic function is normal. Atria The left atrium size is normal. The right atrium size is normal. There is no Doppler evidence of interatrial shunt. Aortic Valve The aortic valve opens well. There is no aortic valvular stenosis. No aortic regurgitation is present. Mitral Valve The mitral valve is normal in structure. No evidence of mitral valve stenosis. There is no mitral valve regurgitation noted. Tricuspid Valve Tricuspid valve is grossly normal in structure and function. Trace tricuspid regurgitation. There is insufficient TR jet to estimate RVSP. Pulmonic Valve The pulmonary valve is normal in structure. Trace pulmonic regurgitation. Great Vessels The aortic root is normal in size. IVC is normal in size and collapses >50% with inspiration. Pericardium There is no pericardial effusion. Other Information Study Quality: Fair Conclusion Normal biventricular systolic function. No significant valvular stenosis or regurgitation. Electronically signed by : Yelitza Lamar MD 01/19/2025 23:00:07
--- NOTE | 2025-01-14 10:41 | CA_ITS ---
APPROVED REPORT Exam: Exercise Treadmill Technologist: Sania Sanford Ht: 5 ft 0 in Wt: 200 lbs BSA: 1.87 m2 HR: 71 bpm BP: 117/71 mmHg Rhythm: NSR Medical History Medical History: HTN, Hyperlipidemia, Diabetes Medications: Aspirin, Atorvastatin, Ezetimibe, Hydrakazine, Hydrochlorothiazide, Lisinopril, Metoprolol Succinate ER, Omeprazole, Tirzepatide Allergies: Penicillin Cardiac Risk Factors: HTN, Hyperlipidemia, Diabetes, FHX of CAD Stress Test Details Test: Exercise stress testing was performed using a Clement protocol. HR Resting HR: 71 bpm Max Heart Rate (APMHR): 173 bpm Max HR Achieved: 153 bpm Target HR (85% APMHR): 147 bpm % of APMHR: 88 Recovery HR: 107 bpm HR response to stress: Normal HR response to stress BP Resting BP: 117.0/71.0 mmHg Max BP: 161.0/96.0 mmHg Recovery BP: 125.0/83.0 mmHg BP response to stress: Normal blood pressure response to stress. ECG Resting ECG: NSR Stress EC.[address] depression Arrhythmia: None Clinical Exercise duration: 6:59 min Highest Stage Achieved: Stage 2: 2.5 mph at 12% grade. Exercise capacity: 7.2 METs Overall Exercise Capacity for Age: Fair Stress ECG Conclusion Pt had mild dyspnea. Stopped at 7:[address] changes: 0.[address] depression. CONCLUSION Fair exercise capacity. No evidence of ischemia at peak stress on ECG. Electronically signed by : Yelitza Lamar MD 01/18/2025 00:20:02
[2025-01-14 11:42] LABS: Basophils # 0.1 K/mm3 (0-0.2); Basophils % 1.4 % (0.1-2.0); Eosinophils # 0.1 K/mm3 (0.0-0.4); Eosinophils % 1.8 % (0.1-12.0); Hemoglobin 14.1 g/dL (12.2-16.2); Lymphocytes % 42.7 % (10-50); Mean Corpuscular HGB Conc 33.6 g/dL (31.8-35.4); Mean Corpuscular Hemoglobin 29.9 pg (27.0-31.2); Mean Corpuscular Volume 89.2 fl (81-99); Mean Platelet Volume 9.2 fl (7.4-10.4); Monocytes # 0.5 K/mm3 (0.1-1.0); Monocytes % 6.5 % (1.7-9.3); Neutrophils # 3.3 K/mm3 (1.8-7.8); Neutrophils % 47.5 % (37.0-80.0); Platelet Count 323 K/mm3 (142-424); Red Blood Count 4.71 M/mm3 (4.20-5.40); Red Cell Distribution Width 12.7 % (11.5-17.5); White Blood Count 7.1 K/mm3 (4.8-10.8)
[2025-01-14 12:29] LABS: Alanine Aminotransferase 50 U/L (12-78); Albumin Level 5.1 g/dl (3.5-5.0); Alkaline Phosphatase 94 U/L (38-126); Anion Gap 26.6 mEq/L (5-15); Aspartate Amino Transferase 53 U/L (14-36); Bilirubin,Direct 0.4 mg/dl (0.0-0.4); Bilirubin,Indirect 0.5 mg/dL (0.0-0.9); Bilirubin,Total 0.9 mg/dl (0.2-1.3); Bilirubin,Unconjugated 0.6 mg/dL (0.0-1.1); Blood Urea Nitrogen 15 mg/dl (7-17); Calcium 10.2 mg/dl (8.4-10.2); Carbon Dioxide 21 mmol/L (22.0-30.0); Chloride 100 mmol/L (98-107); Chol/HDL Ratio 3.3 (1-3.5); Cholesterol 131 mg/dl (140-200); Estimated Glomerular Filt Rate 59 ml/min (>60); GFR (African American) 72 ML/MIN (>60); Glucose 97 mg/dl (74-100); HDL Cholesterol 40 mg/dl (40-60); Potassium 5.6 mmoL/L (3.5-5.1); Sodium 142 mmol/L (136-145); Triglycerides 129 mg/dl (30-150); VLDL Cholesterol 26 mg/dL (0-40)
[2025-01-14 12:40] LABS: Direct LDL Cholesterol 61.78 mg/dL (100-129)
[2025-01-14 12:59] LABS: Thyroid Stimulating Hormone 1.69 uIU/mL (0.465-4.68)
== END 2025-01-14 23:59 | disposition home or self-care (01) ==
PROVIDERS: PCP Nurse Practitioner Family; Visit Provider Physician Assistant
DX: I51.89 Other ill-defined heart diseases (principal); R07.9 Chest pain, unspecified; R06.02 Shortness of breath; E78.2 Mixed hyperlipidemia; G47.00 Insomnia, unspecified; E66.9 Obesity, unspecified; Z68.39 Body mass index [BMI] 39.0-39.9, adult; F17.210 Nicotine dependence, cigarettes, uncomplicated
CPT/HCPCS: 36415; 80048; 80061; 80076; 83735; 84439; 84443; 85025; 93017; 93018; 93306

== ENCOUNTER 2025-01-18 15:29 | Outpatient (CLI) | payer BC, SELFPAY ==
[2025-01-18 16:26] LABS: Anion Gap 15.6 mEq/L (5-15); Blood Urea Nitrogen 15 mg/dl (7-17); Calcium 9.2 mg/dl (8.4-10.2); Carbon Dioxide 29 mmol/L (22.0-30.0); Chloride 99 mmol/L (98-107); Estimated Glomerular Filt Rate 77 ml/min (>60); GFR (African American) 93 ML/MIN (>60); Glucose 97 mg/dl (74-100); Potassium 4.6 mmoL/L (3.5-5.1); Sodium 139 mmol/L (136-145)
== END 2025-01-18 23:59 | disposition home or self-care (01) ==
LOC: LAB 15:31
PROVIDERS: PCP Nurse Practitioner Family; Visit Provider Internal Medicine
DX: E87.5 Hyperkalemia (principal); I25.10 Atherosclerotic heart disease of native coronary artery without angina pectoris; I10 Essential (primary) hypertension; F17.200 Nicotine dependence, unspecified, uncomplicated
CPT/HCPCS: 36415; 80048

== ENCOUNTER 2025-07-26 14:52 | Outpatient (CLI) | payer BC, SELFPAY ==
--- OUTSIDE RECORDS SUMMARY | 2025-07-26 14:59 | XMS_ITS | Clinical Summary ---
Author Organization [facility] Address [address] [place] [address] Care Team Providers Care Lever Operator Name Role Phone Rafa Da Silva MD Primary Care Provider [phone] Allergies Active Allergy Reactions Criticality Noted Date Comments Ergot Alkaloids Anaphylaxis High 09/05/2017 Patient does not recall allergy to this Penicillins Hives Medium 09/04/2017 Medications omeprazole (priLOSEC) 20 MG capsule Take 20 mg by mouth Daily. Active tamsulosin (FLOMAX) 0.4 MG capsule 24 hr capsule Take 1 capsule by mouth Daily. 30 capsule 2 Active metoprolol succinate XL (TOPROL-XL) 25 MG 24 hr tablet Take 1 tablet by mouth Every Night. Active ketorolac (TORADOL) 10 MG tablet Take 1 tablet by mouth Every 6 (Six) Hours As Needed for Moderate Pain. Active ondansetron ODT (ZOFRAN-ODT) [address] 1 tablet on the tongue Every 8 (Eight) Hours As Needed for Nausea or Vomiting. Active atorvastatin (LIPITOR) 40 MG tablet Take 1 tablet by mouth Daily. Active aspirin 81 MG EC tablet Take 1 tablet by mouth Daily. Active oxyCODONE-acetamino phen (PERCOCET) 7.5-325 MG per tablet Take 1 tablet by mouth Every 6 (Six) Hours As Needed for Moderate Pain. Active lisinopril-hydrochl orothiazide (PRINZIDE,ZESTORETI C) 10-12.5 MG per tablet Take 1 tablet by mouth Every Night. Active oxybutynin XL (DITROPAN-XL) 5 MG 24 hr tabletIndications:R ight renal stone Take 1 tablet by mouth Daily as neede for bladder spasm. 14 tablet 09/15/2022 11:01 AM EDT 2 Active phenazopyridine (Pyridium) 200 MG tabletIndications:R ight renal stone Take 1 tablet by mouth 3 (Three) Times a Day As Needed for Bladder Spasms. 20 tablet 09/15/2022 11:01 AM EDT 2 Active methocarbamol (Robaxin) 500 MG tabletIndications:R ight renal stone Take 1 tablet by mouth 3 (Three) Times a Day. 15 tablet 09/15/2022 11:01 AM EDT 2 Active Active Problems Problem Noted Date Diagnosed Date Right renal stone 09/14/2022 Renal stone 09/11/2022 Menorrhagia 09/05/2017 Social History Tobacco Use Types Packs/Day Years Used Date Smoking Tobacco: Every Day Cigarettes 1 13 Smokeless Tobacco: Never Tobacco Cessation:Ready to Q uit: No; Counseling Given: No Alcohol Use Standard Drinks/Week Comments Yes 0 (1 standard drink = 0.6 oz pur e alcohol) rare AUDIT-C Answer Date Recorded Q1: How often do you have a drink containing alcohol? Never 09/14/2022 Q2: How many drinks containi ng alcohol do you have on a typical day when you are drinking? Patient does not drink Q3: How often do you have si x or more drinks on one occasion? Never 09/14/2022 Abuse Screen Answer Date Recorded Unsafe at Home or Work/School Not on file Feels Threatened by Someone? Not on file 09/2023 Does Anyone Keep You from Co ntacting Others or Doint Things Outside the Home? Not on file 10/11/2023 Physical Sign of Abuse Present Not on file 1 12/11/2022 Housing Stability Answer Date Recorded Current Living Arrangements Not on file 10/02 Potentially Unsafe Housing Conditions Not on flakita e 10/11/2023 Family and Community Support Answer Tomi e Recorded Help with Day-to-Day Activities Not on file 09/09/2023 Lonely or Isolated Not on file 09/09/2023 Employment Answer Date Recorded Do you want help finding or keeping work or a malorie b? Not on file 09/09/2023 Disabilities Answer Date Recorded Concentrating, Remembering, or Making Decisions Difficulty Not on file 10/11/2023 Doing Errands Independently Difficulty Not on fi le 10/11/2023 Education Answer Date Recorded Help with school or training? Not on file Preferred Language Not on file 10/11/2023 Comments No Sex and Gender Information Value Date Recorded Sex Assigned at Not on file Legal Sex Female 11:18 AM EDT Gender Identity Not on file Sexual Orientation Not on file Last Filed Vital Signs Vital Sign Reading Time Taken Comments Blood Pressure 92/69 09/15/2022 7:13 AM EDT Pulse 73 09/15/2022 7:13 AM EDT Temperature 36.8 C (98.2 F) 09/15/2022 7:13 AM EDT Respiratory Rate 16 09/15/2022 7:13 AM EDT Oxygen Saturation 95% 09/15/2022 9:00 AM EDT Inhaled Oxygen Concentration - - Weight 96.2 kg (212 lb) 10/23/2022 10:39 AM EST Height 162.6 cm (5' 4.02 ) 10/23/2022 10:[address] Body Mass Index 36.37 10/23/2022 10:39 AM EST Plan of Treatment Upcoming Encounters Date Type Department Care Team (Late st Contact Info) Description 08/26/2025 9:00 [place] [address] Health Maintenance Due Date Last Done Comments Annual Gynecologic Pelvic an d Breast Exam 1977 Pneumococcal Vaccine 0-49 (1 of 2 - PCV) 1996 TDAP/TD VACCINES (1 - Tdap) 1996 MAMMOGRAM 2017 ANNUAL PHYSICAL 09/03/2017 HEPATITIS C SCREENING 09/03/2017 COLOGUARD 2022 COLON CANCER SCREENING 5 YEA R SIGMOIDOSCOPY 2022 COLONOSCOPY 2022 COLORECTAL CANCER SCREENING 2022 CT COLONOGRAPHY 2022 FECAL OCCULT BLOOD TEST 2022 FIT Testing (1 year) 2022 COVID-19 Vaccine ( season) 2024 12/05/2021, 04/21/2021, 03/31/2021 INFLUENZA VACCINE 09/01/2025 Medical Devices Implanted Type Area Fire Management Technician Device Identifier Shelf Expiration Date Model / Serial / Lot Kt Seal Hemos Abs Floseal Matrx Fast/Prep 5ml - [id number] Implanted:Qty : 1 on 09/14/2022 by Juan Mckeon MD at [facility] Implant Right: Flank MAYER [employer] 10/31/2023 [id number] / / [id number] Stnt Percuflx No Gw 4.8x24 - [id number] Implanted:Qty : 1 on 09/14/2022 by Juan Mckeon MD at [facility] Stent Right: Ureter [employer] 06/27/2025 [id number] / / [id number] Insurance EMPLOYEE Advance Directives * CPR (Attempt to Resuscitate) (Latest Code Status on File) Date Activated Date Inactivated Comments 09/14/2022 12:59 PM 09/15/2022 1:45 PM Question Answer Comments Code Status (Patient has no pulse and is not breathing): CPR (Attempt to Resuscitate) Medical Interventions (Patie nt has pulse or is breathing): Full Support Level Of Support Discussed With: Patient Release to patient: Routine Release * Full Code Date Activated Date Inactivated Comments 09/06/2017 2:26 PM 09/06/2017 6:47 PM Care Teams Lever Operator Relationship Specialty Start Date End Date Rafa Da Silva MD [address] [place] [address] PCP - General Family Medicine 08/30/22
[2025-07-26 15:45] LABS: Hematocrit 37.3 % (37.0-47.0); Hemoglobin 12.7 g/dL (12.2-16.2); Immature Granulocytes % 0.2 %; Mean Corpuscular HGB Conc 34.0 g/dL (31.8-35.4); Mean Corpuscular Hemoglobin 30.7 pg (27.0-31.2); Mean Corpuscular Volume 90.1 fl (81-99); Nucleated Red Blood Cells % 0 %; Platelet Count 284 K/mm3 (142-424); Red Blood Count 4.14 M/mm3 (4.20-5.40); Red Cell Distribution Width-SD 41.6 fL; White Blood Count 5.6 K/mm3 (4.8-10.8)
[2025-07-26 18:03] LABS: Albumin Level 4.4 g/dl (3.5-5.0); Chloride 104 mmol/L (98-107); Potassium 4.9 mmoL/L (3.5-5.1); Sodium 140 mmol/L (136-145)
[2025-07-26 18:05] LABS: Alanine Aminotransferase 24 U/L (12-78); Anion Gap 12.9 mEq/L (5-15); Bilirubin,Unconjugated 0.5 mg/dL (0.0-1.1); Blood Urea Nitrogen 16 mg/dl (7-17); Carbon Dioxide 28 mmol/L (22.0-30.0); Creatinine,Serum 0.80 mg/dl (0.52-1.04); Estimated Glomerular Filt Rate 77 ml/min (>60); GFR (African American) 93 ML/MIN (>60)
[2025-07-26 18:06] LABS: Alkaline Phosphatase 71 U/L (38-126); Aspartate Amino Transferase 36 U/L (14-36); Bilirubin,Direct 0.1 mg/dl (0.0-0.4); Bilirubin,Indirect 0.5 mg/dL (0.0-0.9); Bilirubin,Total 0.6 mg/dl (0.2-1.3); Calcium 9.9 mg/dl (8.4-10.2); Cholesterol 137 mg/dl (140-200); Glucose 87 mg/dl (74-100); HDL Cholesterol 46 mg/dl (40-60); Magnesium 1.7 mg/dl (1.6-2.3); Total Protein,Serum 7.5 g/dl (6.3-8.2); Triglycerides 90 mg/dl (30-150)
[2025-07-26 18:07] LABS: Free T4 (Free Thyroxine) 1.59 ng/dl (0.78-2.19)
[2025-07-26 18:35] LABS: Thyroid Stimulating Hormone 1.28 uIU/mL (0.465-4.68)
== END 2025-07-26 23:59 | disposition home or self-care (01) ==
LOC: LAB 14:53
PROVIDERS: PCP Nurse Practitioner Family; Visit Provider Physician Assistant
DX: I25.10 Atherosclerotic heart disease of native coronary artery without angina pectoris (principal); I10 Essential (primary) hypertension
CPT/HCPCS: 36415; 80048; 80061; 80076; 83735; 84439; 84443; 85025